=== PATIENT | male | born 1975 | race Caucasian/White ===

== ENCOUNTER 2018-11-13 21:58 | Emergency (ER) | payer OTHER ==
[~2018-11-13] VITALS: Ht 180.3 cm; Wt 113.4 kg
[~2018-11-13 21:58] MED LIST: CARISOPRODOL 3350 MG PO; GLUCOTROL5 MG PO; IBUPROFEN 800800 M1 PO; IBUPROFEN 800800 MG PO; KEFLEX500 M1 PO; MEDROL DOSPAK21 TA1 PO; METFORMIN 500500 MG PO; OXYCODONE HCL 55 MG; ULTRACET TABLE1 EACH PO; ZPAK PO
[2018-11-13] MEDS ORDERED: PREDNISONE50 MG PO (22:42)
[2018-11-13] MEDS ORDERED: PROAIR HFA8.5 GM INH (22:42)
[2018-11-13] MEDS ORDERED: NASONEX17 GM NASAL (22:42)
[2018-11-13 22:52] VITALS: BP 132/84
== END 2018-11-13 22:53 | disposition home or self-care (01) ==
LOC: M.ERS 21:58
DX: J45.901 Unspecified asthma with (acute) exacerbation (principal)

== ENCOUNTER 2018-11-24 03:08 | Emergency (ER) | payer OTHER ==
[~2018-11-24] VITALS: Ht 180.3 cm; Wt 108.9 kg
[~2018-11-24 03:08] MED LIST changes: +NASONEX17 GM NASAL; +PREDNISONE50 MG PO; +PROAIR HFA8.5 GM INH
[2018-11-24] MEDS ORDERED: ADVAIR HFA 230M12 GM INH (03:29)
[2018-11-24] MEDS ORDERED: PREDNISONE50 MG PO (03:29)
[2018-11-24] MEDS ORDERED: ALBUTEROL2.5 MG/31 INH (04:07)
[2018-11-24 05:14] VITALS: BP 154/70
== END 2018-11-24 05:15 | disposition home or self-care (01) ==
LOC: M.ERS 03:08
DX: J45.901 Unspecified asthma with (acute) exacerbation (principal)

== ENCOUNTER 2019-03-31 18:45 | Emergency (ER) | payer OTHER ==
[~2019-03-31] VITALS: Ht 180.3 cm; Wt 117.9 kg
[~2019-03-31 18:45] MED LIST changes: +ADVAIR HFA 230M12 GM INH; +ALBUTEROL2.5 MG/31 INH
[2019-03-31] MEDS ORDERED: KEFLEX500 M1 PO (19:13)
[2019-03-31 19:23] VITALS: BP 116/82
== END 2019-03-31 19:25 | disposition home or self-care (01) ==
LOC: M.ERS 18:45
DX: L25.9 Unspecified contact dermatitis, unspecified cause (principal); L08.9 Local infection of the skin and subcutaneous tissue, unspecified; J45.909 Unspecified asthma, uncomplicated; E11.9 Type 2 diabetes mellitus without complications

== ENCOUNTER → 2019-10-05 | Outpatient (CLI) | payer OTHER ==
--- NOTE | 2019-10-05 14:10 | 2DMMODE ---
[place] [address] 2 D/M-MODE ECHOCARDIOGRAM Name: NICOLE VILLALTA Room: [facility]#: [id number] Admission: 10/05/19 Attend Phys: Vince Mims Discharge: Date of : 79 Date of Service: 10/05/19 1409 Report #: [id number] THIS REPORT FOR: cc: Vince Mims,Ludwin Anderson MD [facility] ~ APPROVED REPORT Study performed: 10/05/2019 12:38:26 EXAM: Comprehensive 2D, Doppler, and color-flow Echocardiogram Patient Location: Out-Patient BSA: 2.30 HR: 80 bpm BP: 118/72 mmHg Other Information Study Quality: Good Indications Murmur 2D Dimensions IVSd: 12.67 (7-11mm) LVOT Diam: 20.46 (18-24mm) LVDd: 48.53 mm PWd: 10.27 (7-11mm) Ascending Ao: 32.45 (22-36mm) LVDs: 28.55 (25-40mm) Aortic Root: 26.10 mm Volumes Left Atrial Volume (Systole) LA ESV Index: 15.10 mL/m2 Aortic Valve AoV Peak Edmund.: 1.25 m/s AO Peak Gr.: 6.22 mmHg LVOT Max P.57 mmHg AO Mean Gr.: 3.45 mmHg LVOT Mean P.10 mmHg LVOT Max V: 1.07 m/s AO V2 VTI: 21.03 cm LVOT Mean V: 0.65 m/s GONZALEZ (VTI): 3.33 cm2 LVOT V1 VTI: 21.28 cm Mitral Valve E/A Ratio: 1.14 [place] [address] 2 D/M-MODE ECHOCARDIOGRAM Name: NICOLE VILLALTA [id number] Admission: 10/05/19 Attend Phys: Vince Mims Discharge: Date of : 79 Date of Service: 10/05/19 1409 Report #: [id number] MV Decel. Time: 225.84 ms MV E Max Edmund.: 0.68 m/s MV PHT: 65.49 ms MVA (PHT): 3.36 cm2 TDI E/Lateral E': 5.23 E/Medial E': 6.18 Medial E' Edmund.: 0.11 m/s Lateral E' Edmund.: 0.13 m/s Pulmonary Valve PV Peak Edmund.: 1.01 m/s PV Peak Gr.: 4.09 mmHg Left Ventricle The left ventricle is normal size. There is normal LV segmental wall motion. There is normal left ventricular wall thickness. Left ventricular systolic function is normal. LVEF is 55-60%. The left ventricular diastolic function is normal. Right Ventricle The right ventricle is normal size. The right ventricular systolic function is normal. Atria The left atrium size is normal. The right atrium size is normal. Aortic Valve The aortic valve is normal in structure. No aortic regurgitation is present. There is no aortic valvular stenosis. Mitral Valve The mitral valve is normal in structure. There is no mitral valve regurgitation noted. No evidence of mitral valve stenosis. Tricuspid Valve The tricuspid valve is normal in structure. There is no tricuspid valve regurgitation noted. Pulmonic Valve The pulmonary valve is normal in structure. Mild pulmonic regurgitation. Great Vessels The aortic root is normal in size. IVC is normal in size and collapses >50% [place] [address] 2 D/M-MODE ECHOCARDIOGRAM Name: PAWANNICOLE Agueda Room: [facility]#: [id number] Admission: 10/05/19 Attend Phys: Vince Mims Discharge: Date of : 79 Date of Service: 10/05/19 1409 Report #: [id number] Pericardium There is no pericardial effusion. <Conclusion> The left ventricle is normal size. There is normal left ventricular wall thickness. Left ventricular systolic function is normal. LVEF is 55-60%. The left ventricular diastolic function is normal. Mild pulmonic regurgitation. IVC is normal in size and collapses >50% with inspiration. <ELECTRONICALLY SIGNED> By: Ludwin Tejeda MD, FACC 10/05/19 1409 08 08 Ludwin Tejeda MD, FACC /INF
== END ==
LOC: M.CRD 09-20 08:00
DX: I08.8 Other rheumatic multiple valve diseases (principal)

== ENCOUNTER → 2020-03-27 | Outpatient (CLI) | payer OTHER | LOC: M.ULTRA 03-13 14:00 | PROVIDERS: ATTEND Family Medicine | DX: K76.0 Fatty (change of) liver, not elsewhere classified (principal); R16.2 Hepatomegaly with splenomegaly, not elsewhere classified; K90.9 Intestinal malabsorption, unspecified ==

== ENCOUNTER → 2020-04-17 | Outpatient (CLI) | payer OTHER | LOC: M.NUC 04-10 13:00 | PROVIDERS: ATTEND Family Medicine | DX: K76.0 Fatty (change of) liver, not elsewhere classified (principal); K90.9 Intestinal malabsorption, unspecified ==

== ENCOUNTER → 2020-05-15 | Outpatient (CLI) | payer OTHER | LOC: M.CT 05-12 09:00 | PROVIDERS: ATTEND Surgery | DX: R10.84 Generalized abdominal pain (principal); R19.4 Change in bowel habit ==